=== PATIENT | male | born 1970 | race Caucasian/White ===

== ENCOUNTER 2019-07-09 15:22 | Inpatient (IN) | payer SELFPAY ==
[~2019-07-09] VITALS: Ht 165.1 cm; Wt 93.0 kg
[~2019-07-09 15:22] MED LIST: CARVEDILOL12.5 M1 PO; GLIPIZIDE10 MG PO; JANUMET1 TA1 PO; LOSARTAN POTASS1 TA6 PO
[2019-07-09 16:46] LABS: CALCIUM 8.8 mg/dL (8.5-10.1); CARBON DIOXIDE 26.8 mmol/L (21-32); CHLORIDE SERUM 101 mmol/L (98-107); GFR1 > 60 mL/min; GLUCOSE SERUM 281 mg/dL (74-106); POTASSIUM SERUM 3.9 mmol/L (3.5-5.1); SODIUM SERUM 139 mmol/L (136-145)
[2019-07-09 16:54] LABS: BASOPHIL % 0.7 % (0-2); PLATELET COUNT 322 x10^3mcL (130-400)
[2019-07-09 16:59] LABS: ALBUMIN 3.7 g/dL (3.4-5.0); ALKALINE PHOSPHATASE 132 U/L (46-116); ALT/SGPT 30 U/L (16-63); AST/SGOT 13 U/L (15-37); BILIRUBIN TOTAL 0.36 mg/dL (0.20-1.00); CHOLESTEROL 165 mg/dL (<200); LIPASE 196 IU/L (73-393); MAGNESIUM 2.2 mg/dL (1.8-2.4); T4(THYROXINE) 6.7 ug/dL (4.7-13.3); TOTAL PROTEIN, SERUM 6.7 g/dL (6.4-8.2)
[2019-07-09 17:03] LABS: HDL CHOLESTEROL 32 mg/dL (40-60)
[2019-07-09 17:37] LABS: microscopic required? NO
[2019-07-09 17:56] LABS: urine erythrocyte NEGATIVE (NEGATIVE)
[2019-07-09 18:12] LABS: AMPHETAMINE QUAL UR NONE DETECTED (See below)
[2019-07-09 20:25] VITALS: BP 148/89
[2019-07-10 06:20] VITALS: BP 161/94
[2019-07-10 06:29] LABS: BASOPHIL % 0.8 % (0-2); PLATELET COUNT 278 x10^3mcL (130-400); RED CELL DISTRIBUTION WIDTH 13.2 % (11.5-14.5)
[2019-07-10 08:50] VITALS: BP 155/97
[2019-07-10 12:33] LABS: CALCIUM 8.6 mg/dL (8.5-10.1); CARBON DIOXIDE 24.7 mmol/L (21-32); CHLORIDE SERUM 104 mmol/L (98-107); CREATININE SERUM 0.8 mg/dL (0.7-1.3); GFR1 > 60 mL/min; GLUCOSE SERUM 166 mg/dL (74-106); MAGNESIUM 2.3 mg/dL (1.8-2.4); PHOSPHOROUS 3.6 mg/dL (2.5-4.9); POTASSIUM SERUM 3.5 mmol/L (3.5-5.1); SODIUM SERUM 139 mmol/L (136-145)
[2019-07-10 14:00] VITALS: BP 153/84
[2019-07-10 16:39] VITALS: BP 155/81
[2019-07-10 20:51] VITALS: BP 163/94
[2019-07-11 06:36] VITALS: BP 162/90
[2019-07-11 06:37] LABS: BASOPHIL % 0.5 % (0-2); PLATELET COUNT 301 x10^3mcL (130-400); RED CELL DISTRIBUTION WIDTH 13.2 % (11.5-14.5)
[2019-07-11 07:41] LABS: CALCIUM 8.2 mg/dL (8.5-10.1); CARBON DIOXIDE 20.1 mmol/L (21-32); CHLORIDE SERUM 107 mmol/L (98-107); CREATININE SERUM 0.7 mg/dL (0.7-1.3); GFR1 > 60 mL/min; GLUCOSE SERUM 154 mg/dL (74-106); PHOSPHOROUS 2.7 mg/dL (2.5-4.9); POTASSIUM SERUM 3.3 mmol/L (3.5-5.1); SODIUM SERUM 142 mmol/L (136-145)
[2019-07-11 09:24] VITALS: BP 152/91
[2019-07-11 12:03] VITALS: BP 158/92
[2019-07-11 18:03] VITALS: BP 166/91
[2019-07-11 19:00] VITALS: BP 138/81
[2019-07-11 21:23] VITALS: BP 149/84
[2019-07-12 05:33] VITALS: BP 155/92
[2019-07-12 07:10] LABS: BASOPHIL % 0.4 % (0-2); RED CELL DISTRIBUTION WIDTH 13.4 % (11.5-14.5)
[2019-07-12 07:25] LABS: CHLORIDE SERUM 107 mmol/L (98-107); CREATININE SERUM 0.8 mg/dL (0.7-1.3); GFR1 > 60 mL/min; GLUCOSE SERUM 136 mg/dL (74-106); MAGNESIUM 2.2 mg/dL (1.8-2.4); PHOSPHOROUS 3.2 mg/dL (2.5-4.9); POTASSIUM SERUM 3.3 mmol/L (3.5-5.1); SODIUM SERUM 141 mmol/L (136-145)
[2019-07-12 07:36] LABS: CARBON DIOXIDE 16.1 mmol/L (21-32)
[2019-07-12 08:18] VITALS: BP 149/87
[2019-07-12 08:22] LABS: PLATELET COUNT 250 x10^3mcL (130-400)
[2019-07-12 12:25] VITALS: BP 146/82
[2019-07-12 16:30] VITALS: BP 150/99
[2019-07-12 20:57] VITALS: BP 145/83
[2019-07-13 05:42] VITALS: BP 151/79
[2019-07-13 06:30] LABS: CALCIUM 8.4 mg/dL (8.5-10.1); CARBON DIOXIDE 23.6 mmol/L (21-32); CHLORIDE SERUM 109 mmol/L (98-107); CREATININE SERUM 0.8 mg/dL (0.7-1.3); GFR1 > 60 mL/min; GLUCOSE SERUM 163 mg/dL (74-106); PHOSPHOROUS 2.9 mg/dL (2.5-4.9); POTASSIUM SERUM 3.4 mmol/L (3.5-5.1); SODIUM SERUM 143 mmol/L (136-145)
[2019-07-13 06:41] LABS: BASOPHIL % 0.3 % (0-2); PLATELET COUNT 296 x10^3mcL (130-400); RED CELL DISTRIBUTION WIDTH 13.3 % (11.5-14.5)
[2019-07-13 07:37] VITALS: BP 138/74
[2019-07-13 10:09] VITALS: BP 156/84
[2019-07-13 11:30] VITALS: BP 152/74
[2019-07-13 16:11] VITALS: BP 151/83
[2019-07-13 20:40] VITALS: BP 145/84
[2019-07-14 05:59] VITALS: BP 143/79
[2019-07-14 06:35] LABS: CALCIUM 8.6 mg/dL (8.5-10.1); CARBON DIOXIDE 28.8 mmol/L (21-32); CHLORIDE SERUM 109 mmol/L (98-107); CREATININE SERUM 0.9 mg/dL (0.7-1.3); GFR1 > 60 mL/min; GLUCOSE SERUM 199 mg/dL (74-106); POTASSIUM SERUM 3.7 mmol/L (3.5-5.1); SODIUM SERUM 144 mmol/L (136-145)
[2019-07-14 06:45] LABS: BASOPHIL % 0.7 % (0-2); PLATELET COUNT 297 x10^3mcL (130-400); RED CELL DISTRIBUTION WIDTH 13.2 % (11.5-14.5)
[2019-07-14 07:52] VITALS: BP 140/79
[2019-07-14 10:10] VITALS: BP 140/76
[2019-07-14] MEDS ORDERED: BAY NG (10:12)
[2019-07-14] MEDS ORDERED: APR20I IV (10:12)
[2019-07-14] MEDS ORDERED: ATORVASTATIN CA40 M1 NG (10:12)
[2019-07-14 11:21] VITALS: BP 143/93
== END 2019-07-14 15:24 | disposition short-term general hospital (02) | DRG 65 ==
LOC: ED 15:22 → DU 18:39
PROVIDERS: Emergency Medicine; General Practice; Internal Medicine Gastroenterology; ADMIT Family Medicine
PROC: 0DB68ZX Excision of Stomach, Via Natural or Artificial Opening Endoscopic, Diagnostic (ICD-10-PCS; 2019-07-13)
PROC: 0DH63UZ Insertion of Feeding Device into Stomach, Percutaneous Approach (ICD-10-PCS; principal; 2019-07-13 08:00)
DX: I63.9 Cerebral infarction, unspecified (principal); K22.10 Ulcer of esophagus without bleeding; I10 Essential (primary) hypertension; I45.10 Unspecified right bundle-branch block; E11.65 Type 2 diabetes mellitus with hyperglycemia; R13.10 Dysphagia, unspecified; E78.5 Hyperlipidemia, unspecified; G46.3 Brain stem stroke syndrome; E87.6 Hypokalemia; Z79.4 Long term (current) use of insulin; Z83.3 Family history of diabetes mellitus; Z82.3 Family history of stroke; Z82.49 Family history of ischemic heart disease and other diseases of the circulatory system; Z72.89 Other problems related to lifestyle; Z23 Encounter for immunization
CPT/HCPCS: 43235; 82962; 83880; 90658; 92610-GN; 97116-GP; C9113; G0378; G0480; J0360; J0690; J1200; J1610; J1650; J2250; J2270; J2310; J2405; J2765; J3010; J3490; J7030; J7042; Q0092